=== PATIENT | male | born 1975 ===

== ENCOUNTER 2017-02-24 08:21 | Outpatient (CLI) | payer BC ==
--- NOTE | 2017-02-24 10:52 | ULT ---
RIGHT UPPER QUADRANT ULTRASOUND: DATE: 02/24/17. HISTORY: Elevated liver enzymes. FINDINGS: The liver demonstrates mild increased echogenicity suggesting fatty infiltration. No focal hepatic lesion is seen. Limited visualized portions of the gallbladder and visualized portions of the IVC demonstrate a norm al sonographic appearance. The pancreas is obscured by bowel gas. There is mild fullness in the re gion of the right renal pelvis, but no calyceal dilatation is seen. The right kidney otherwise has a normal sonographic appearance and measures 10 cm in length. The common duct measures 0.3 cm in diameter which is within normal limits. IMPRESSION: 1. Mild fatty infiltration of the liver. 2. Obscuration of the pancreas. 3. No gallbladder calculi are seen. POS: [facility]
== END 2017-02-24 08:22 | disposition home or self-care (01) ==
LOC: ULT 08:21
PROVIDERS: ATTEND Family Medicine
DX: R74.8 Abnormal levels of other serum enzymes (principal); K76.0 Fatty (change of) liver, not elsewhere classified; K86.89 Other specified diseases of pancreas
CPT/HCPCS: 76705